=== PATIENT | male | born 1990 | race Caucasian/White ===

== ENCOUNTER 2023-08-15 11:44 | Emergency (ER) | payer MEDICAID ==
[~2023-08-15] VITALS: Ht 165.1 cm; Wt 72.7 kg
[2023-08-15 11:48] VITALS: TEMP 98.3
[2023-08-15] MEDS: IBUPROFEN 600 MG TABLET PO ONE (13:26)
[2023-08-15 13:37] VITALS: BP 136/88; PULSE 81; RESP 16
== END 2023-08-15 13:41 | disposition home or self-care (01) ==
LOC: EMS 11:46
DX: S83.92XA Sprain of unspecified site of left knee, initial encounter (principal); X58.XXXA Exposure to other specified factors, initial encounter; Y93.89 Activity, other specified; Y92.89 Other specified places as the place of occurrence of the external cause; Y99.8 Other external cause status
CPT/HCPCS: 29505; 99283